=== PATIENT | female | born 1960 | race African-American/Black ===

== ENCOUNTER 2020-10-12 18:47 | Emergency (ER) | payer OTHER ==
[2020-10-12 19:03] VITALS: TEMP 98; BMI 53.2
[2020-10-12 21:39] VITALS: BP 168/75; PULSE 91
== END 2020-10-12 21:35 | disposition home or self-care (01) ==
LOC: JER 18:47
DX: I10 Essential (primary) hypertension (principal)
CPT/HCPCS: 93005; 93010; 99284-25

== ENCOUNTER 2020-10-16 21:29 | Emergency (ER) | payer OTHER ==
[2020-10-16 21:39] VITALS: PULSE 89; TEMP 98.5; BMI 51.6
[2020-10-16 22:53] VITALS: BP 147/92
== END 2020-10-16 22:57 | disposition home or self-care (01) ==
LOC: JER 21:29
DX: I10 Essential (primary) hypertension (principal)
CPT/HCPCS: 99283-25

== ENCOUNTER 2024-01-18 17:28 | Inpatient (IN) | payer OTHER ==
[2024-01-18 19:27] LABS: VENOUS BASE EXCESS -1.8 mmol/L (-2-2); VENOUS O2 SATURATION 96.2 % (70-80); VENOUS PCO2 38.1 mmHg (38-52); VENOUS PH 7.395 (7.310-7.410)
[2024-01-18 19:29] LABS: BASO % 0.1 % (0-2.0); HEMATOCRIT 34.4 % (32.4-45.2); HEMOGLOBIN 11.5 GM/dL (10.7-15.3); LYMPH % 8.3 % (8-40); MCH 26.1 pg (25.7-33.7); MCHC 33.3 g/dl (32.0-36.0); MEAN CELL VOLUME 78.3 fl (80-96); MEAN PLT VOLUME 8.5 fl (7.5-11.1); MONO % 6.6 % (3.8-10.2); PLATELET COUNT 185 10^3/uL (134-434); RDW 14.4 % (11.6-15.6); WHITE BLOOD COUNT 13.9 K/mm3 (4.0-10.0)
[2024-01-18 19:56] LABS: POTASSIUM 3.6 mmol/L (3.5-5.1)
[2024-01-18 19:58] LABS: CALCIUM 8.9 mg/dL (8.5-10.1)
[2024-01-18 19:59] LABS: ALBUMIN 3.4 g/dl (3.4-5.0); BLOOD UREA NITROGEN 18.9 mg/dL (7-18); MAGNESIUM 1.4 mg/dL (1.8-2.4)
[2024-01-18 20:02] LABS: CREATININE 0.8 mg/dL (0.55-1.3)
[2024-01-18 20:03] LABS: BILIRUBIN,TOTAL 0.3 mg/dL (0.2-1)
[2024-01-18 20:04] LABS: TOT PROT 6.5 g/dl (6.4-8.2)
[2024-01-18 20:07] LABS: N-TERMINAL BNP 303.6 pg/ml (5-125)
[2024-01-18] MEDS ORDERED: methylPREDNISolone NA SUCC 125 MG/2 ML VIAL ONE (20:38)
[2024-01-18] MEDS ORDERED: ALBUTEROL SO4 2.5/IPRATROPIUM 0.5 INH SOL 3 ML VIAL.NEB. NEB ONE (20:38)
[2024-01-18] MEDS ORDERED: MAGNESIUM SULFATE IN WATER 2 GM/50 ML IVPB IVPB ONE (20:43)
[2024-01-18] MEDS: methylPREDNISolone NA SUCC 125 MG/2 ML VIAL IVPUSH ONE (20:50)
[2024-01-18] MEDS: MAGNESIUM SULF 50% (8.12 MEQ/2 ML-1 GM VIAL) IVPB ONE (20:50)
[2024-01-18] MEDS: ALBUTEROL SO4 2.5/IPRATROPIUM 0.5 INH SOL 3 ML VIAL.NEB. NEB SCH (20:50)
[2024-01-18 21:39] LABS: INR 1.17 (0.83-1.09); PROTHROMBIN TIME (PATIENT) 13.5 SEC (9.7-13.0)
[2024-01-18 21:41] LABS: ACTIVATED PTT 26.6 SECONDS (25.2-36.5)
[2024-01-19] MEDS ORDERED: MONTELUKAST NA 10 MG TABLET ONE (06:38)
[2024-01-19] MEDS ORDERED: ALBUTEROL SO4 2.5/IPRATROPIUM 0.5 INH SOL 3 ML VIAL.NEB. NEB ONE ×3 (06:38→13:42)
[2024-01-19] MEDS ORDERED: methylPREDNISolone NA SUCC 40 MG/1 ML VIAL ONE ×2 (06:38→12:52)
[2024-01-19] MEDS ORDERED: MAGNESIUM SULFATE IN WATER 2 GM/50 ML IVPB IVPB ONE ×2 (06:38→07:54)
[2024-01-19] MEDS: ALBUTEROL SO4 2.5/IPRATROPIUM 0.5 INH SOL 3 ML VIAL.NEB. NEB SCH ×2 (06:57→19:21)
[2024-01-19] MEDS: methylPREDNISolone NA SUCC 40 MG/1 ML VIAL IVPUSH SCH ×2 (06:57→21:02)
[2024-01-19] MEDS: MONTELUKAST NA 10 MG TABLET PO SCH ×2 (06:57→21:03)
[2024-01-19] MEDS: MAGNESIUM 2GM/50ML STERILE WATER IVPB IVPB SCH ×2 (06:58→21:10)
[2024-01-19] MEDS ORDERED: ACETAMINOPHEN 325 MG TABLET (FP) ONE (07:01)
[2024-01-19] MEDS: ACETAMINOPHEN 325 MG TABLET (FP) PO PRN ×2 (07:01→17:24)
[2024-01-19] MEDS: guaiFENesin 600 MG TABLET.ER (FP) PO SCH ×2 (07:19→21:03)
[2024-01-19 08:01] LABS: HEMOGLOBIN 11.6 GM/dL (10.7-15.3); MCHC 31.4 g/dl (32.0-36.0); MEAN CELL VOLUME 79.7 fl (80-96); MEAN PLT VOLUME 8.7 fl (7.5-11.1); PLATELET COUNT 192 10^3/uL (134-434); RBC 4.64 M/mm3 (3.60-5.2); RDW 14.6 % (11.6-15.6); WHITE BLOOD COUNT 14.7 K/mm3 (4.0-10.0)
[2024-01-19] MEDS: INSULIN ASPART SLIDING SCALE (NOVOLOG) 1 VIAL SQ SCH ×2 (08:01→17:28)
[2024-01-19 08:22] LABS: POTASSIUM 4.3 mmol/L (3.5-5.1)
[2024-01-19 08:25] LABS: ALBUMIN 3.2 g/dl (3.4-5.0); BLOOD UREA NITROGEN 18.8 mg/dL (7-18); CALCIUM 9.3 mg/dL (8.5-10.1)
[2024-01-19 08:28] LABS: CREATININE 0.9 mg/dL (0.55-1.3); PHOSPHOROUS 3.5 mg/dL (2.5-4.9)
[2024-01-19 08:29] LABS: BILIRUBIN,TOTAL 0.4 mg/dL (0.2-1); TOT PROT 6.6 g/dl (6.4-8.2)
[2024-01-19] MEDS ORDERED: BUDESONIDE/FORMETEROL FUMARATE 160/4.5 mcg INHALER IH SCH (10:00)
[2024-01-19] MEDS ORDERED: ENOXAPARIN NA (PORCINE) 40 MG/0.4 ML DISP.SYRIN SQ ONE (12:51)
[2024-01-19] MEDS: BUDESONIDE/FORMETEROL FUMARATE 160/4.5 mcg INHALER IH SCH ×2 (13:03→21:51)
[2024-01-19] MEDS: ENOXAPARIN NA (PORCINE) 40 MG/0.4 ML DISP.SYRIN SQ SCH ×2 (13:03→21:02)
[2024-01-19 15:57] VITALS: BMI 50.5
[2024-01-19] MEDS ORDERED: BENZOCAINE/MENTH/CETYLPYRD CL 1 EACH LOZENGE MM PRN (16:08)
[2024-01-19] MEDS: FLUTICASONE PROP 0.05% 16 GM NASAL SPRAY NS SCH (17:23)
[2024-01-20] MEDS: ALBUTEROL SO4 2.5/IPRATROPIUM 0.5 INH SOL 3 ML VIAL.NEB. NEB ONE (06:55)
[2024-01-20] MEDS: AZITHROMYCIN IVPB 500 MG/250 ML BAG IVPB SCH (11:20)
[2024-01-20] MEDS ORDERED: DEXTROSE 50%-WATER 25 GM/50 ML DISP.SYRIN IVPUSH PRN (21:38)
[2024-01-20] MEDS: predniSONE 20 MG TABLET (UD) PO SCH (22:26)
[2024-01-21 09:43] LABS: BASO % 0.1 % (0-2.0); HEMATOCRIT 37.8 % (32.4-45.2); HEMOGLOBIN 12.4 GM/dL (10.7-15.3); LYMPH % 8.1 % (8-40); MCH 25.9 pg (25.7-33.7); MCHC 32.8 g/dl (32.0-36.0); MEAN PLT VOLUME 9.1 fl (7.5-11.1); MONO % 5.1 % (3.8-10.2); NEUT % 86.7 % (42.8-82.8); PLATELET COUNT 210 10^3/uL (134-434); RBC 4.79 M/mm3 (3.60-5.2); RDW 14.9 % (11.6-15.6); WHITE BLOOD COUNT 13.2 K/mm3 (4.0-10.0)
[2024-01-21] MEDS ORDERED: ALBUTEROL SO4 0.083% IH SOL 2.5 MG/3 ML VIAL.NEB. NEB PRN (09:47)
[2024-01-21 10:54] LABS: POTASSIUM 4.7 mmol/L (3.5-5.1)
[2024-01-21 10:57] LABS: CALCIUM 8.9 mg/dL (8.5-10.1)
[2024-01-21 10:58] LABS: BLOOD UREA NITROGEN 23.5 mg/dL (7-18)
[2024-01-21 11:01] LABS: CREATININE 0.9 mg/dL (0.55-1.3)
[2024-01-21] MEDS ORDERED: ACETAMINOPHEN 325 MG TABLET (FP) PO PRN (11:31)
[2024-01-21] MEDS ORDERED: INSULIN (NOVOLOG) ASPART 100 UNITS/ML 10ML VIAL ONE ×3 (12:16→21:16)
[2024-01-21] MEDS: methylPREDNISolone NA SUCC 40 MG/1 ML VIAL IVPUSH SCH (12:19)
[2024-01-21] MEDS: MAGNESIUM HYDROX 2400MG/30ML ORAL SUSPENSION 30 ML CUP PO PRN (12:19)
[2024-01-21] MEDS: ACETAMINOPHEN 1000 MG/100 ML BAG IVPB PRN (17:18)
[2024-01-22] MEDS ORDERED: INSULIN (NOVOLOG) ASPART 100 UNITS/ML 10ML VIAL ONE ×2 (06:36→17:12)
[2024-01-22 08:31] LABS: BASO % 0.1 % (0-2.0); HEMATOCRIT 37.2 % (32.4-45.2); LYMPH % 8.3 % (8-40); MCH 25.8 pg (25.7-33.7); MCHC 32.3 g/dl (32.0-36.0); MEAN CELL VOLUME 79.9 fl (80-96); MEAN PLT VOLUME 8.7 fl (7.5-11.1); MONO % 4.1 % (3.8-10.2); NEUT % 87.5 % (42.8-82.8); PLATELET COUNT 208 10^3/uL (134-434); RBC 4.65 M/mm3 (3.60-5.2); RDW 14.4 % (11.6-15.6); WHITE BLOOD COUNT 19.2 K/mm3 (4.0-10.0)
[2024-01-22 08:54] LABS: POTASSIUM 4.6 mmol/L (3.5-5.1)
[2024-01-22 09:02] LABS: ALBUMIN 3.3 g/dl (3.4-5.0); CALCIUM 8.7 mg/dL (8.5-10.1)
[2024-01-22 09:03] LABS: BLOOD UREA NITROGEN 27.2 mg/dL (7-18); MAGNESIUM 2.1 mg/dL (1.8-2.4)
[2024-01-22 09:06] LABS: CREATININE 0.9 mg/dL (0.55-1.3)
[2024-01-22 09:07] LABS: BILIRUBIN,TOTAL 0.3 mg/dL (0.2-1); TOT PROT 6.5 g/dl (6.4-8.2)
[2024-01-22] MEDS: PANTOPRAZOLE 40 MG TABLET PO SCH (12:46)
[2024-01-23 08:54] LABS: HEMATOCRIT 38.3 % (32.4-45.2); HEMOGLOBIN 11.9 GM/dL (10.7-15.3); MCH 25.1 pg (25.7-33.7); MCHC 31.1 g/dl (32.0-36.0); MEAN CELL VOLUME 80.6 fl (80-96); MEAN PLT VOLUME 8.6 fl (7.5-11.1); PLATELET COUNT 215 10^3/uL (134-434); RBC 4.75 M/mm3 (3.60-5.2); RDW 14.2 % (11.6-15.6); WHITE BLOOD COUNT 22.1 K/mm3 (4.0-10.0)
[2024-01-23 09:16] LABS: POTASSIUM 4.5 mmol/L (3.5-5.1)
[2024-01-23 09:17] LABS: BLOOD UREA NITROGEN 24.2 mg/dL (7-18); CALCIUM 8.8 mg/dL (8.5-10.1); MAGNESIUM 2.1 mg/dL (1.8-2.4)
[2024-01-23 09:18] LABS: ALBUMIN 3.3 g/dl (3.4-5.0)
[2024-01-23 09:21] LABS: BILIRUBIN,TOTAL 0.4 mg/dL (0.2-1); CREATININE 0.9 mg/dL (0.55-1.3); TOT PROT 6.5 g/dl (6.4-8.2)
[2024-01-23 09:33] LABS: ANISOCYTOSIS 3+; MACROCYTOSIS 0
[2024-01-23 14:06] VITALS: RESP 18
[2024-01-23] MEDS ORDERED: INSULIN (NOVOLOG) ASPART 100 UNITS/ML 10ML VIAL ONE (17:34)
[2024-01-23] MEDS: methylPREDNISolone NA SUCC 40 MG/1 ML VIAL IVPUSH SCH (23:00)
[2024-01-24 05:51] VITALS: BP 113/60; PULSE 66; TEMP 98.4
[2024-01-24 09:18] LABS: HEMATOCRIT 37.2 % (32.4-45.2); MCH 25.8 pg (25.7-33.7); MCHC 32.2 g/dl (32.0-36.0); MEAN CELL VOLUME 80.3 fl (80-96); MEAN PLT VOLUME 9.1 fl (7.5-11.1); PLATELET COUNT 203 10^3/uL (134-434); RBC 4.63 M/mm3 (3.60-5.2); RDW 14.5 % (11.6-15.6); WHITE BLOOD COUNT 24.1 K/mm3 (4.0-10.0)
[2024-01-24 09:42] LABS: ANISOCYTOSIS 0; MACROCYTOSIS 0
[2024-01-24 09:44] LABS: POTASSIUM 4.6 mmol/L (3.5-5.1)
[2024-01-24 09:48] LABS: ALBUMIN 3.2 g/dl (3.4-5.0); BLOOD UREA NITROGEN 28.5 mg/dL (7-18); CALCIUM 8.8 mg/dL (8.5-10.1); MAGNESIUM 1.9 mg/dL (1.8-2.4)
[2024-01-24 09:52] LABS: BILIRUBIN,TOTAL 0.4 mg/dL (0.2-1); CREATININE 0.9 mg/dL (0.55-1.3); TOT PROT 6.3 g/dl (6.4-8.2)
== END 2024-01-24 11:33 | disposition home or self-care (01) | DRG 141 ==
LOC: JER 17:28 → JERBED 22:56 → UNDOADMOB 22:56 → INTOOBSV 01-19 06:42 → OBSVTOIN 01-19 06:42 → JERBED 01-19 11:47 → J8W 01-19 15:38 → OBSVTOIN 01-22 13:14
PROVIDERS: ADMIT Internal Medicine; ATTEND Nurse Practitioner Family
DX: J45.901 Unspecified asthma with (acute) exacerbation (principal); I10 Essential (primary) hypertension; D72.829 Elevated white blood cell count, unspecified; E11.9 Type 2 diabetes mellitus without complications; E83.42 Hypomagnesemia; G47.33 Obstructive sleep apnea (adult) (pediatric); Z68.43 Body mass index [BMI] 50.0-59.9, adult; E66.01 Morbid (severe) obesity due to excess calories; J20.9 Acute bronchitis, unspecified
CPT/HCPCS: 0241U-QW; 36415; 71045-TC-FY; 80048; 80053; 82803; 82962; 83036; 83735; 83880; 84100; 84484; 85025; 85027; 85610; 85730; 93005; 93010; 94010; 94150; 94640; 94761; 97116-GP; 97161-GP; 99285-25; G0378; J0131